=== PATIENT | male | born 1960 | race African-American/Black ===

== ENCOUNTER 2024-12-10 02:44 | Observation (INO) | payer MEDICAID ==
[2024-12-10] MEDS ORDERED: Dextrose 50% Abboject 50 ML SYRINGE SLOW IVP PRN (09:45)
[2024-12-10] MEDS ORDERED: Acetaminophen 325 MG TAB PO PRN (09:45)
[2024-12-10] MEDS ORDERED: Glucagon 1 MG/ML KIT IM PRN (09:45)
[2024-12-10] MEDS ORDERED: Senokot S 8.6-50 MG TAB PO PRN (09:45)
[2024-12-10] MEDS ORDERED: Melatonin 3 MG TAB PO PRN (09:45)
[2024-12-10] MEDS ORDERED: Furosemide 20 MG (2 mL) VIAL ONE (13:57)
[2024-12-10] MEDS: Furosemide 20 MG (2 mL) VIAL SLOW IVP SCH (14:11)
[2024-12-10] MEDS: Apixaban 5 MG TAB PO SCH (20:55)
[2024-12-10] MEDS: Sertraline 100 MG TAB PO SCH (20:55)
[2024-12-10] MEDS: Famotidine 20 MG TAB PO SCH (20:55)
[2024-12-10 21:26] VITALS: BMI 24.3
[2024-12-11 05:11] LABS: #Basophils Less than 0.03 10x3/uL (0.0-0.2); #Eosinophils Less than 0.03 10x3/uL (0.0-0.7); #Monocytes 0.22 10x3/uL (0.11-0.59); #Neutrophils 9.70 10x3/uL (1.40-6.50); %Basophils 0.1 % (0.0-1.0); %Eosinophils 0.0 % (0.0-10.0); %Lymphocytes 4.7 % (21.0-51.0); %Monocytes 2.1 % (0.0-10.0); %Neutrophils 92.7 % (42.0-75.0); Hematocrit 36.7 % (42.0-52.0); Hemoglobin 12.3 g/dL (14.0-18.0); Mean Corpuscular Hemoglobin 29.8 pg (27.0-31.0); Mean Corpuscular Volume 88.9 fL (78.0-98.0); Platelet Count 152 10x3/uL (130-400); Red Blood Cell (RBC) Count 4.13 mill/uL (4.70-6.10); White Blood Cell (WBC) Count 10.46 10x3/uL (4.8-10.8)
[2024-12-11 05:51] LABS: ALT (SGPT) 22 U/L (Less than 45); AST (SGOT) 21 U/L (11-34); Albumin 4.1 g/dL (3.1-4.5); Alkaline Phosphatase 98 U/L (40-110); Anion Gap 19 mmol/L (10-20); BUN (Urea Nitrogen) 54 mg/dL (8.4-25.7); Bilirubin, Total 0.7 mg/dL (0.3-1.2); Calc. Creatinine Clearance 34 mL/min (70-130); Calcium 9.6 mg/dL (7.8-10.44); Carbon Dioxide 15 mmol/L (23-31); Chloride 106 mmol/L (98-107); Globulin 3.4 g/dL (2.4-3.5); Glucose 176 mg/dL (80-115); Magnesium 2.7 mg/dL (1.6-2.6); Potassium 4.4 mmol/L (3.5-5.1); Sodium 136 mmol/L (136-145)
[2024-12-11] MEDS: Sodium Bicarbonate Tab 325 MG TAB PO SCH (14:31)
[2024-12-11 17:08] VITALS: BP 115/84; TEMP 97.9
== END 2024-12-11 18:38 | disposition home or self-care (01) ==
LOC: ERS 02:44 → INTOOBSV 08:23 → ERHOLD 08:23 → OBS 20:37
PROVIDERS: ADMIT Family Medicine; ATTEND Internal Medicine
DX: J96.01 Acute respiratory failure with hypoxia (principal); I13.0 Hypertensive heart and chronic kidney disease with heart failure and stage 1 through stage 4 chronic kidney disease, or unspecified chronic kidney disease; I50.43 Acute on chronic combined systolic (congestive) and diastolic (congestive) heart failure; N18.30 Chronic kidney disease, stage 3 unspecified; N17.9 Acute kidney failure, unspecified; I48.0 Paroxysmal atrial fibrillation; I25.10 Atherosclerotic heart disease of native coronary artery without angina pectoris; I42.9 Cardiomyopathy, unspecified; E11.22 Type 2 diabetes mellitus with diabetic chronic kidney disease; E78.5 Hyperlipidemia, unspecified; E87.20 Acidosis, unspecified; F41.9 Anxiety disorder, unspecified; D63.1 Anemia in chronic kidney disease; Z86.73 Personal history of transient ischemic attack (TIA), and cerebral infarction without residual deficits; Z95.5 Presence of coronary angioplasty implant and graft; Z95.810 Presence of automatic (implantable) cardiac defibrillator; Z87.891 Personal history of nicotine dependence; Z88.1 Allergy status to other antibiotic agents; Z88.0 Allergy status to penicillin; Z79.01 Long term (current) use of anticoagulants; Z79.899 Other long term (current) drug therapy
CPT/HCPCS: 36415; 36416; 80053; 83735; 83880; 84484; 85025; 93005; 99285; J1815; J1940; J2919

== ENCOUNTER 2025-01-11 10:09 | Inpatient (IN) | payer MEDICAID ==
[2025-01-11 11:37] LABS: INR-International Normal Ratio 1.7; Prothrombin Time 20.3 sec (12.0-14.7)
[2025-01-11 11:38] LABS: PTT 61.7 sec (22.9-36.1)
[2025-01-11 11:52] LABS: Ovalocytes SLIGHT = 2-5 cells HPF (0-1); Platelet Adequacy Comment Platelets Decreased; RBC Morphology Within Normal Limits; Smudge Cells 1.0 %
[2025-01-11 11:53] LABS: Hematocrit 38.1 % (42.0-52.0); Hemoglobin 12.4 g/dL (14.0-18.0); Mean Corpuscular Hemoglobin 27.9 pg (27.0-31.0); Mean Corpuscular Volume 85.8 fL (78.0-98.0); Platelet Count 118 10x3/uL (130-400); Red Blood Cell (RBC) Count 4.44 mill/uL (4.70-6.10); White Blood Cell (WBC) Count 5.92 10x3/uL (4.8-10.8)
[2025-01-11 11:56] LABS: ALT (SGPT) 17 U/L (Less than 45); AST (SGOT) 25 U/L (11-34); Albumin 3.4 g/dL (3.1-4.5); Alkaline Phosphatase 143 U/L (40-110); Anion Gap 19 mmol/L (10-20); BUN (Urea Nitrogen) 86 mg/dL (8.4-25.7); Bilirubin, Total 0.7 mg/dL (0.3-1.2); Calc. Creatinine Clearance 0 mL/min (70-130); Calcium 9.5 mg/dL (7.8-10.44); Carbon Dioxide 35 mmol/L (23-31); Chloride 88 mmol/L (98-107); Globulin 3.6 g/dL (2.4-3.5); Glucose 112 mg/dL (80-115); Magnesium 3.0 mg/dL (1.6-2.6); Potassium 2.1 mmol/L (3.5-5.1); Sodium 140 mmol/L (136-145)
[2025-01-11] MEDS ORDERED: Potassium Bicarbonate/Cit Ac 20 MEQ TAB ONE (12:19)
[2025-01-11 12:33] LABS: Glucose, Urine (Dipstick) 300 mg/dL (Negative); Leukocyte 75 Leu/uL (Negative); Protein, Urine (Dipstick) Negative (Neg-Trace); Specific Gravity, Urine 1.008 (1.002-1.036)
[2025-01-11 12:34] LABS: Bacteria/HPF None Seen HPF (None Seen); CAUTI Indications for Culture Alt mental st,lethar; RBC/HPF 0-3 HPF (0-3); WBC/HPF 0-3 HPF (0-3)
[2025-01-11 12:36] LABS: Urine Culture Reflex No No
[2025-01-11] MEDS ORDERED: Potassium Chloride 20 MEQ (100 mL) BAG ONE (12:39)
[2025-01-11 16:22] VITALS: BMI 22.7
[2025-01-11] MEDS: Sodium Bicarbonate Tab 325 MG TAB PO SCH (17:06)
[2025-01-11] MEDS ORDERED: Potassium Bicarbonate/Cit Ac 20 MEQ TAB PO SCH (17:15)
[2025-01-11] MEDS: FLU (Fluarix Triv) 25-26 (6MOS UP)/PF 45 MCG/0.5 ML Syringe IM ONE (17:39)
[2025-01-11 17:54] LABS: Potassium 3.1 mmol/L (3.5-5.1)
[2025-01-11] MEDS: Albumin 25% 25 GM (100 mL) BOT IVPB SCH (18:18)
[2025-01-11] MEDS: Carvedilol 3.125 MG TAB PO SCH (20:16)
[2025-01-11] MEDS: Apixaban 5 MG TAB PO SCH (20:17)
[2025-01-11] MEDS: Sertraline 100 MG TAB PO SCH (20:17)
[2025-01-12 04:22] LABS: Anion Gap 20 mmol/L (10-20); BUN (Urea Nitrogen) 79 mg/dL (8.4-25.7); Calc. Creatinine Clearance 30 mL/min (70-130); Calcium 9.8 mg/dL (7.8-10.44); Carbon Dioxide 32 mmol/L (23-31); Chloride 92 mmol/L (98-107); Glucose 108 mg/dL (80-115); Magnesium 2.7 mg/dL (1.6-2.6); Potassium 2.9 mmol/L (3.5-5.1); Sodium 141 mmol/L (136-145)
[2025-01-12] MEDS ORDERED: Furosemide 40 MG (4 mL) VIAL SLOW IVP SCH (06:00)
[2025-01-12] MEDS ORDERED: Dapagliflozin Propanediol 10 MG TAB PO SCH (09:00)
[2025-01-12 20:40] LABS: Anion Gap 24 mmol/L (10-20); BUN (Urea Nitrogen) 69 mg/dL (8.4-25.7); Calc. Creatinine Clearance 36 mL/min (70-130); Calcium 9.9 mg/dL (7.8-10.44); Carbon Dioxide 22 mmol/L (23-31); Chloride 100 mmol/L (98-107); Glucose 111 mg/dL (80-115); Magnesium 2.8 mg/dL (1.6-2.6); Potassium 5.1 mmol/L (3.5-5.1); Sodium 141 mmol/L (136-145)
[2025-01-12] MEDS: Albumin 25% 25 GM (100 mL) BOT IVPB SCH (23:45)
[2025-01-13 04:48] LABS: Albumin 4.0 g/dL (3.1-4.5); Anion Gap 20 mmol/L (10-20); BUN (Urea Nitrogen) 68 mg/dL (8.4-25.7); BUN/Creatinine Ratio 30.49; Calc. Creatinine Clearance 37 mL/min (70-130); Calcium 10.0 mg/dL (7.8-10.44); Carbon Dioxide 30 mmol/L (23-31); Chloride 95 mmol/L (98-107); Glucose 99 mg/dL (80-115); Magnesium 2.6 mg/dL (1.6-2.6); Potassium 3.5 mmol/L (3.5-5.1); Sodium 141 mmol/L (136-145)
[2025-01-14 04:03] LABS: Albumin 3.8 g/dL (3.1-4.5); Anion Gap 17 mmol/L (10-20); BUN (Urea Nitrogen) 57 mg/dL (8.4-25.7); BUN/Creatinine Ratio 26.27; Calc. Creatinine Clearance 37 mL/min (70-130); Calcium 10.1 mg/dL (7.8-10.44); Carbon Dioxide 30 mmol/L (23-31); Chloride 97 mmol/L (98-107); Glucose 113 mg/dL (80-115); Magnesium 2.4 mg/dL (1.6-2.6); Potassium 3.8 mmol/L (3.5-5.1); Sodium 140 mmol/L (136-145)
[2025-01-14 10:37] VITALS: BMI 22.1
[2025-01-14 12:31] VITALS: BP 111/71; TEMP 97.8
== END 2025-01-14 12:30 | disposition home or self-care (01) | DRG 683 ==
LOC: ERS 10:09 → ERHOLD 13:57 → PCU 15:55
PROVIDERS: ADMIT Internal Medicine; ATTEND Internal Medicine
PROC: 30233J1 Transfusion of Nonautologous Serum Albumin into Peripheral Vein, Percutaneous Approach (ICD-10-PCS; principal; 2025-01-12)
PROC: 05HY33Z Insertion of Infusion Device into Upper Vein, Percutaneous Approach (ICD-10-PCS; 2025-01-12)
DX: N17.9 Acute kidney failure, unspecified (principal); E87.3 Alkalosis; I13.0 Hypertensive heart and chronic kidney disease with heart failure and stage 1 through stage 4 chronic kidney disease, or unspecified chronic kidney disease; I50.22 Chronic systolic (congestive) heart failure; I42.0 Dilated cardiomyopathy; E87.6 Hypokalemia; Z88.0 Allergy status to penicillin; I25.2 Old myocardial infarction; E78.5 Hyperlipidemia, unspecified; I25.10 Atherosclerotic heart disease of native coronary artery without angina pectoris; Z86.73 Personal history of transient ischemic attack (TIA), and cerebral infarction without residual deficits; E11.22 Type 2 diabetes mellitus with diabetic chronic kidney disease; Z95.1 Presence of aortocoronary bypass graft; Z95.810 Presence of automatic (implantable) cardiac defibrillator; N18.30 Chronic kidney disease, stage 3 unspecified; M54.2 Cervicalgia; I48.91 Unspecified atrial fibrillation; H40.9 Unspecified glaucoma; E88.09 Other disorders of plasma-protein metabolism, not elsewhere classified; D63.1 Anemia in chronic kidney disease; F17.210 Nicotine dependence, cigarettes, uncomplicated; T50.2X5A Adverse effect of carbonic-anhydrase inhibitors, benzothiadiazides and other diuretics, initial encounter; L30.9 Dermatitis, unspecified; Z95.5 Presence of coronary angioplasty implant and graft; M10.9 Gout, unspecified; Z88.1 Allergy status to other antibiotic agents; Z79.01 Long term (current) use of anticoagulants; Z79.899 Other long term (current) drug therapy; E11.39 Type 2 diabetes mellitus with other diabetic ophthalmic complication
CPT/HCPCS: 36415; 70450; 71045; 72125; 80048; 80053; 80069; 81001; 83735; 83880; 84100; 84484; 85025; 85610; 85730; 93005; 93798; 96365; 96366; 96375; 97139; J2270; J3480; J7030; P9047